=== PATIENT | male | born 1995 | race Hispanic/Latino ===

== ENCOUNTER 2018-01-07 15:52 | Emergency (ER) | payer SELFPAY ==
[~2018-01-07 15:52] MED LIST: ISOVUE-370 76%-LOCM 1 ML ONE
[2018-01-07 16:33] LABS: Bilirubin Negative (Negative); Blood, Urine Negative (Negative); Clarity CLEAR (Clear); Glucose, Urine (Dipstick) Negative (Negative); Leukocyte Negative (Negative); Nitrite Negative (Negative); Protein, Urine (Dipstick) Negative (Neg-Trace); Specific Gravity, Urine 1.007 (1.002-1.036); Urobilinogen 0.2 mg/dL (0.2-1.0); pH, Urine 6.5 (5.0-9.0)
[2018-01-07] MEDS ORDERED: Ondansetron ODT 4 MG TAB ONE (17:16)
[2018-01-07] MEDS ORDERED: Metoclopramide 10 MG/10 ML UDCUP ONE (17:16)
[2018-01-07] MEDS ORDERED: Metoclopramide HCl 10 MG/2 ML VIAL ONE (17:17)
[2018-01-07 17:21] LABS: Hemoglobin 15.1 g/dL (14.0-18.0); Mean Corpuscular HGB CONC 35.1 g/dL (32.0-36.0); Mean Corpuscular Hemoglobin 32.8 pg (27.0-31.0); Mean Corpuscular Volume 93.6 fl (80.0-94.0); Mean Platelet Volume 8.3 fL (7.4-10.4); Platelet Count 209 thou/uL (130-400); RBC Distribution Width 11.6 % (11.5-14.5); Red Blood Cell (RBC) Count 4.59 mill/uL (4.70-6.10); White Blood Cell (WBC) Count 22.4 thou/uL (4.8-10.8)
[2018-01-07 17:39] LABS: ALT (SGPT) 162 U/L (8-55); AST (SGOT) 85 U/L (5-34); Albumin 4.6 g/dL (3.5-5.0); Alkaline Phosphatase 214 U/L (40-150); Anion Gap 16 mmol/L (10-20); BUN (Urea Nitrogen) 9 mg/dL (8.9-20.6); Bilirubin, Total 0.7 mg/dL (0.2-1.2); Calc. Creatinine Clearance 0 mL/min (70-130); Calcium 9.1 mg/dL (7.8-10.44); Carbon Dioxide 21 mmol/L (22-29); Chloride 99 mmol/L (98-107); Estimated GFR-MDRD 86; Globulin 3.5 g/dL (2.4-3.5); Glucose 164 mg/dL (70-105); Protein, Total 8.1 g/dL (6.0-8.3); Sodium 133 mmol/L (136-145)
[2018-01-07 17:42] LABS: Potassium 2.8 mmol/L (3.5-5.1)
[2018-01-07 17:45] LABS: Band 17 % (5-11); Lymphocytes 10 % (21-51); MDiff Complete? YES; Monocytes 5 % (0-10); Neutrophil 68 % (42-75); PLT Morphology Comment Appears Adequate
[2018-01-07] MEDS ORDERED: Potassium Chloride 20 MEQ TAB ONE (17:49)
[2018-01-07] MEDS ORDERED: POTASSIUM CHLORIDE IVPB ONE (18:00)
[2018-01-07] MEDS ORDERED: ADMIXTURE FEE IVPB ONE (18:00)
[2018-01-07] MEDS ORDERED: Potassium Chloride 10 MEQ in Premix Bag 1 BAG IVPB ONE (18:15)
--- NOTE | 2018-01-07 22:35 | CT ---
CT OF ABDOMEN AND PELVIS PERFORMED WITH INTRAVENOUS CONTRAST ENHANCEMENT: 01/07/19 HISTORY: Diffuse abdominal pain, nausea, vomiting and diarrhea. The lung bases are clear. The liver, spleen, pancreas, and gallbladder regions appear unremarkable. Right and left adrenal glands and right and left kidneys are normal in size. There is no significant periaortic adenopathy. There are some prominent mesenteric nodes, particularly in the ileocolic regio n. There is underdistention of the colon but despite this there appears to be diffuse colon wall thic kening. There are some areas where it is difficult to exclude subtle changes of pneumatosis, but I se e no pericolonic fat stranding. CT OF PELVIS PERFORMED WITH CONTRAST ENHANCEMENT: The appendix appears unremarkable. It is somewhat obscured by unopacified small bowel but appears nor mal in size. There is no evidence of free fluid, adenopathy or mass. IMPRESSION: Enlarged ileocolic lymph nodes and findings that are suggestive of a diffuse colitis. Findings discussed with Dr. Yang. POS: [facility]
== END 2018-01-07 21:56 | disposition home or self-care (01) ==
LOC: ERS 15:52
DX: K52.9 Noninfective gastroenteritis and colitis, unspecified (principal); E87.6 Hypokalemia
CPT/HCPCS: 74177; 80053; 81003; 83690; 85025; 96365; 96367; 96372; J2765; J3480; Q0162

== ENCOUNTER 2018-12-14 09:04 | Emergency (ER) | payer SELFPAY ==
--- NOTE | 2018-12-14 09:26 | RAD ---
XR Ankle Rt 3 View STANDARD History:Ankle injury Comparison: None Findings: There is soft tissue swelling adjacent to the lateral malleolus there are no signs of fract ure or joint effusion. Impression: No evidence of fracture.
[2018-12-14] MEDS ORDERED: Ibuprofen 200 MG TAB ONE (10:23)
== END 2018-12-14 10:29 | disposition home or self-care (01) ==
LOC: ERS 09:04
DX: M25.571 Pain in right ankle and joints of right foot (principal); X50.9XXA Other and unspecified overexertion or strenuous movements or postures, initial encounter

== ENCOUNTER 2023-04-26 13:31 | Emergency (ER) | payer SELFPAY ==
[2023-04-26] MEDS ORDERED: Acetaminophen 500 MG TAB ONE (13:49)
[2023-04-26] MEDS ORDERED: Ketorolac Tromethamine 30 MG/ML VIAL ONE (13:53)
[2023-04-26] MEDS ORDERED: CEFAZOLIN 2 GM VIAL ONE (13:53)
[2023-04-26] MEDS ORDERED: Boostrix 0.5 ML (Tdap) VIAL (>/=7 yrs of age) ONE (13:53)
[2023-04-26] MEDS ORDERED: Morphine 4 MG/ML VIAL ONE ×2 (14:07→15:02)
== END 2023-04-26 16:21 | disposition home or self-care (01) ==
LOC: ERS 13:31
DX: R20.9 Unspecified disturbances of skin sensation (principal); Z23 Encounter for immunization
CPT/HCPCS: 70450; 90471; 90715; 96365; 96375; 96376; J1885; J2270